=== PATIENT | male | born 1990 | race Two or more races ===

== ENCOUNTER 2023-12-01 07:24 | Emergency (ER) | payer OTHER ==
[~2023-12-01] VITALS: Ht 177.8 cm; Wt 83.9 kg
[2023-12-01 07:41] VITALS: O2SAT 98
[2023-12-01 09:35] VITALS: BP 122/71; PULSE 88; RESP 16; TEMP 98.7
== END 2023-12-01 09:46 | disposition home or self-care (01) ==
LOC: ER 07:30
DX: R51.9 Headache, unspecified (principal); Z98.890 Other specified postprocedural states; Z20.822 Contact with and (suspected) exposure to COVID-19
CPT/HCPCS: 71045; 87426; 99284

== ENCOUNTER 2024-03-10 11:07 | Emergency (ER) | payer OTHER ==
[~2024-03-10] VITALS: Ht 177.8 cm; Wt 82.0 kg
[2024-03-10 11:30] VITALS: O2SAT 98
[2024-03-10 13:18] LABS: CHLORIDE 108 mEq/L (98-107); POTASSIUM 4.2 mEq/L (3.5-5.1); SODIUM 142 mEq/L (136-145)
[2024-03-10 13:20] LABS: CARBON DIOXIDE 29 mEq/L (21-32)
[2024-03-10 13:25] LABS: GLUCOSE 106 mg/dL (70-105); UREA NITROGEN BLOOD 8 mg/dL (9-23)
[2024-03-10 13:26] LABS: ALANINE AMINOTRANSFERASE 37 IU/L (10-49); ASPARTATE AMINOTRANSFERASE 41 IU/L (<34)
[2024-03-10 13:27] LABS: ALBUMIN 4.7 g/dL (3.2-4.8); BILIRUBIN DIRECT 0.2 mg/dL (<=3.0); BILIRUBIN TOTAL 0.8 mg/dL (0.1-1.0); PROTEIN TOTAL 7.6 g/dL (6.0-8.3)
[2024-03-10 13:28] LABS: BASOPHILS % 0.5 % (0.0-2.0); EOSINOPHILS % 0.1 % (0.0-5.0); HEMATOCRIT. 44.7 % (42.0-52.0); HEMOGLOBIN. 14.7 g/dL (14.0-18.0); LYMPHOCYTES % 12.3 % (20.0-50.0); MEAN CORPUSCULAR HEMOGLOBIN 28.9 pg (28.0-32.0); MEAN CORPUSCULAR HGB CONC 32.9 g/dL (31.0-37.0); MEAN CORPUSCULAR VOLUME 87.8 fL (80.0-94.0); MEAN PLATELET VOLUME 8.1 fl (7.4-10.4); MONOCYTES % 5.5 % (2.0-8.0); NEUTROPHILS % 81.6 % (40.0-76.0); PLATELET 294 x1000/uL (130-400); RED BLOOD CELL COUNT 5.09 mill/uL (4.7-6.1); RED CELL DISTRIBUTION WIDTH 14.1 % (11.6-14.6); WHITE BLOOD COUNT 13.9 x1000/uL (4.5-11.0)
[2024-03-10] MEDS: CYCLOBENZAPRINE 10MG TABLET PO ONE (15:01)
[2024-03-10] MEDS ORDERED: IBUP-2028 MT (16:32)
[2024-03-10] MEDS ORDERED: CYCL5TAB MT (16:32)
[2024-03-10 16:55] VITALS: BP 114/66; PULSE 80; RESP 18; TEMP 36.78072; O2SAT 98
[2024-03-10] MEDS ORDERED: IOHEXOL-300 100 ML BOTTLE ONE (22:02)
== END 2024-03-10 16:56 | disposition home or self-care (01) ==
LOC: ER 11:07
DX: M54.9 Dorsalgia, unspecified (principal); M54.2 Cervicalgia; V99.XXXA Unspecified transport accident, initial encounter; Y93.89 Activity, other specified; Y92.89 Other specified places as the place of occurrence of the external cause; Y99.8 Other external cause status
CPT/HCPCS: 99285; 70450; 80076; 80048; 83690; 85025; 36415; 71260; 72125; 74177; Q9967